=== PATIENT | male | born 2000 | race Caucasian/White ===

== ENCOUNTER 2022-02-26 17:14 | Emergency (ER) | payer OTHER ==
[2022-02-26 17:32] VITALS: BP 132/76; PULSE 123; TEMP 98; BMI 24.0
[2022-02-26] MEDS ORDERED: KETOROLAC TROMETHAMINE 30 MG/1 ML VIAL IVPUSH ONE (17:38)
[2022-02-26] MEDS ORDERED: HYDROmorphone HCL CARPU-JECT 2 MG/1 ML DISP.SYRIN IVPUSH ONE (17:38)
[2022-02-26] MEDS ORDERED: DIPHTH,PERTUSS(ACELL),TET 0.5 ML DISP.SYRIN IM ONE (17:56)
[2022-02-26] MEDS ORDERED: CEFAZOLIN 1 GM/D5W 1 GM/50 ML BAG IVPB ONE (17:59)
[2022-02-26 18:00] LABS: BASO % 0.7 % (0-2.0); EOS % 2.1 % (0-4.5); LYMPH % 48.5 % (8-40); MCH 31.6 pg (25.7-33.7); MCHC 35.6 g/dl (32.0-35.9); MEAN CELL VOLUME 88.8 fl (80-96); MEAN PLT VOLUME 7.3 fl (7.5-11.1); MONO % 4.1 % (3.8-10.2); NEUT % 44.6 % (42.8-82.8); PLATELET COUNT 254 10^3/uL (134-434); RBC 5.07 M/mm3 (4.00-5.60); RDW 12.7 % (11.9-15.9); WHITE BLOOD COUNT 6.7 K/mm3 (4.0-10.0)
[2022-02-26 18:07] LABS: INR 1.08 (0.83-1.09); PROTHROMBIN TIME (PATIENT) 12.4 SEC (9.7-13.0)
[2022-02-26 18:10] LABS: ACTIVATED PTT 30.7 SECONDS (25.2-36.5)
[2022-02-26 18:22] LABS: ALBUMIN 4.7 g/dl (3.4-5.0); CALCIUM 9.2 mg/dL (8.5-10.1)
[2022-02-26 18:25] LABS: CREATININE 1.2 mg/dL (0.55-1.3)
[2022-02-26 18:27] LABS: TOT PROT 7.8 g/dl (6.4-8.2)
== END 2022-02-26 19:32 | disposition short-term general hospital (02) ==
LOC: JERFT 17:14
PROC: 3E03329 Introduction of Other Anti-infective into Peripheral Vein, Percutaneous Approach (ICD-10-PCS; principal; 2022-02-26)
PROC: 3E033NZ Introduction of Analgesics, Hypnotics, Sedatives into Peripheral Vein, Percutaneous Approach (ICD-10-PCS; 2022-02-26)
PROC: 3E0333Z Introduction of Anti-inflammatory into Peripheral Vein, Percutaneous Approach (ICD-10-PCS; 2022-02-26)
PROC: 3E0234Z Introduction of Serum, Toxoid and Vaccine into Muscle, Percutaneous Approach (ICD-10-PCS; 2022-02-26)
DX: S61.012A Laceration without foreign body of left thumb without damage to nail, initial encounter (principal); S68.119A Complete traumatic metacarpophalangeal amputation of unspecified finger, initial encounter; W31.2XXA Contact with powered woodworking and forming machines, initial encounter
CPT/HCPCS: 36415; 80053; 85025; 85610; 85730; 86850; 86900; 86901; 90715; 99284-25; C9803-CS; U0003; U0005